=== PATIENT | female | born 1985 | race Caucasian/White ===

== ENCOUNTER → 2018-05-05 15:52 | Outpatient (CLI) | payer OTHER, SELFPAY ==
--- NOTE | 2018-05-05 | DI.US.S_ITS ---
PROCEDURE: US OB >= 14 WEEKS FETUS INDICATIONS: ANATOMICAL SURVEY OUTSIDE/PRIOR DATING DATA: Last menstrual period (LMP): Unknown. LMP-based estimated date of delivery (PLACIDO): N./A.. First dating scan (date and location): 03/21/2018. Estimated date of delivery (PLACIDO) from first dating scan: 09/18/2018. TECHNIQUE: Real-time scanning was performed of the fetus, with image documentation and biometric measurements. Endovaginal scanning: Not required COMPARISON: Located Within [facility] Ultrasound, US, US OB < 14 WEEKS, 03/21/2018, 9:24. FINDINGS: General: A single living intrauterine gestation is present. Presentation: Transverse with head to the maternal right. Placenta: Placental position is posterior, without previa. Amniotic fluid index: 14.4 cm, normal range is 5-24 cm. heart rate: 135 beats per minute. Maternal cervical canal: 4.1 cm long. Normal lower limit is 2.5 cm biometrics: Biparietal diameter: 20 weeks 5 days Head circumference: 20 weeks 3 days Abdominal circumference: 21 weeks Femur length: 20 weeks one day Estimated gestational age from initial scan: 20 weeks 4 days Composite gestational age from present scan: 20 weeks 4 days, normal growth Estimated weight and percentile: 365 g at the 47th percentile Measurement variability for biometric dating: +/- 7 days from 14 weeks to 15 weeks 6 days gestation, +/- 10 days from 16 weeks to 21 weeks 6 days gestation, +/- 2 weeks from 22 weeks to 27 weeks 6 days gestation, +/- 3 weeks for 28 weeks gestation or later. weight reference: 4500 g or EFW >90/95% is considered macrosomia or large for gestational age. EFW <10% is small for gestational age. EFW 5% or less is considered intra-uterine growth restriction. Anatomic survey: Neuro: Ventricles are non-dilated at less than 10 mm. Cisterna magna is normal at 3-11 mm. Cerebellum is normal in size and morphology. Nuchal skin fold: Normal at less than 6 mm between 14-21 weeks gestational age. Face: Nose and lips, facial profile are normal. Spine: No evidence for spina bifida. Heart: 4-chambered heart is present, with normal ventricular outflow tracts. Diaphragm: Diaphragm is intact. Stomach: Left-sided stomach is present. Kidneys: No hydronephrosis. Normal is less than 5 mm in 2nd trimester, less than 7 mm in 3rd trimester. Cord: 3-vessel cord has orthotopic insertion. Bladder: Normal in size. Extremities: All 4 extremities identified. IMPRESSION: Single, live intrauterine gestation at 20 weeks 4 days gestational age, normal growth and normal anatomy. Dictated by: Neeraj Patino M.D. on 05/06/2018 at 9:33 Approved by: Neeraj Patino M.D. on 05/06/2018 at 9:39
== END ==
PROVIDERS: Visit Provider Midwife
DX: Z36.89 Encounter for other specified antenatal screening (principal); Z3A.20 20 weeks gestation of pregnancy
CPT/HCPCS: 76811

== ENCOUNTER → 2018-08-22 12:02 | Outpatient (CLI) | payer OTHER, SELFPAY ==
--- NOTE | 2018-08-22 | DI.US.S_ITS ---
PROCEDURE: US OB LIMITED INDICATIONS: GROWTH; GESTATIONAL DIABETES OUTSIDE/PRIOR DATING DATA: Last menstrual period (LMP): Not available. LMP-based estimated date of delivery (PLACIDO): Not available. First dating scan (date and location): 05/05/18. Estimated date of delivery (PLACIDO) from first dating scan: 09/18/18. TECHNIQUE: Real-time scanning was performed of the fetus, with image documentation. Endovaginal scanning: Not needed for this study COMPARISON: 05/05/18 comparison. FINDINGS: A single living intrauterine gestation is present. Presentation: Vertex Placenta: Placental position is fundal, without previa. Amniotic fluid index: 14.3 cm, normal range is 5-24 cm. heart rate: 141 beats per minute. Estimated gestational age from initial scan: 36 weeks 1 day. biometry is internally consistent with a gestational age estimate of 36 weeks 5 days, with the current estimated weight of 2879 g, at the 54th percentile for current gestational age. BPD 9.0 cm correlates with 36 weeks 3 days, head circumference of 33.9 cm correlates with 39 weeks 0 days. Abdominal circumference of 32.3 cm correlates with 36 weeks 1 day and femur length of 6.8 cm correlates with 35 week one day gestational age. IMPRESSION: Appropriate interval growth, no sign of macrosomia. Normal amniotic fluid volume. The delivery date is projected to be centered on 09/18/18 and the current estimated weight is 2879 g, at the 54th percentile for current gestational age based on the earliest available OB ultrasound.. Dictated by: Allan Aquino M.D. on 08/22/2018 at 14:13 Approved by: Allan Aquino M.D. on 08/22/2018 at 14:18
== END ==
PROVIDERS: Visit Provider Midwife
DX: O36.63X0 Maternal care for excessive fetal growth, third trimester, not applicable or unspecified (principal); O24.419 Gestational diabetes mellitus in pregnancy, unspecified control; Z3A.36 36 weeks gestation of pregnancy
CPT/HCPCS: 76815